=== PATIENT | male | born 1985 | race Caucasian/White ===

== ENCOUNTER 2020-02-10 01:52 | Emergency (ER) | payer OTHER ==
[~2020-02-10] VITALS: Ht 167.6 cm; Wt 109.5 kg
[2020-02-10 02:01] VITALS: Ht 167.6 cm; Wt 109.5 kg
[2020-02-10 03:14] LABS: BASOPHIL % 0.3 % (0-2); RED CELL DISTRIBUTION WIDTH 13.5 % (11.5-14.5)
[2020-02-10 03:20] LABS: CALCIUM 8.5 mg/dL (8.5-10.1); CARBON DIOXIDE 31.6 mmol/L (21-32); CHLORIDE SERUM 104 mmol/L (98-107); CREATININE SERUM 0.6 mg/dL (0.7-1.3); GFR1 > 60 mL/min; GLUCOSE SERUM 100 mg/dL (74-106); POTASSIUM SERUM 3.4 mmol/L (3.5-5.1); SODIUM SERUM 143 mmol/L (136-145)
[2020-02-10 03:27] LABS: ALKALINE PHOSPHATASE 141 U/L (46-116); ALT/SGPT 102 U/L (16-63); AST/SGOT 214 U/L (15-37); BILIRUBIN TOTAL 2.13 mg/dL (0.20-1.00); TOTAL PROTEIN, SERUM 8.2 g/dL (6.4-8.2)
[2020-02-10 03:32] LABS: ALBUMIN 3.2 g/dL (3.4-5.0)
[2020-02-10 03:42] LABS: PLATELET COUNT 101 x10^3mcL (130-400)
[2020-02-10 03:49] VITALS: BP 150/57
== END 2020-02-10 03:49 | disposition home or self-care (01) ==
LOC: ED 01:52
PROVIDERS: Emergency Medicine
DX: R06.02 Shortness of breath (principal)
CPT/HCPCS: 36415

== ENCOUNTER 2020-05-30 10:09 | Inpatient (IN) | payer OTHER ==
[~2020-05-30] VITALS: Ht 172.7 cm; Wt 103.4 kg
[2020-05-30 10:13] VITALS: Ht 172.7 cm; Wt 103.4 kg
[2020-05-30 11:43] LABS: BASOPHIL % 0.7 % (0-2)
[2020-05-30 11:44] LABS: RED CELL DISTRIBUTION WIDTH 16.4 % (11.5-14.5)
[2020-05-30 11:45] LABS: PLATELET COUNT 67 x10^3mcL (130-400)
[2020-05-30 12:09] LABS: CALCIUM 7.5 mg/dL (8.5-10.1); CARBON DIOXIDE 28.3 mmol/L (21-32); CHLORIDE SERUM 103 mmol/L (98-107); CREATININE SERUM 0.8 mg/dL (0.7-1.3); GFR1 > 60 mL/min; GLUCOSE SERUM 92 mg/dL (74-106); POTASSIUM SERUM 4.1 mmol/L (3.5-5.1); SODIUM SERUM 138 mmol/L (136-145)
[2020-05-30 12:14] LABS: ALKALINE PHOSPHATASE 96 U/L (46-116); ALT/SGPT 71 U/L (16-63); AST/SGOT 169 U/L (15-37); BILIRUBIN TOTAL 7.01 mg/dL (0.20-1.00); LIPASE 148 IU/L (73-393); TOTAL PROTEIN, SERUM 7.4 g/dL (6.4-8.2)
[2020-05-30 12:16] LABS: ALBUMIN 2.2 g/dL (3.4-5.0)
[2020-05-30 14:45] LABS: UA SPECIFIC GRAVITY >=1.030 (1.005-1.035); microscopic required? YES; urine erythrocyte NEGATIVE (NEGATIVE)
[2020-05-30 14:59] LABS: AMPHETAMINE QUAL UR NONE DETECTED (See below)
[2020-05-30 17:38] VITALS: BP 147/85
[2020-05-30 20:51] VITALS: BP 118/46
[2020-05-31 05:53] VITALS: BP 118/60
[2020-05-31 06:52] LABS: BASOPHIL % 0.5 % (0-2)
[2020-05-31 07:17] LABS: ALKALINE PHOSPHATASE 92 U/L (46-116); ALT/SGPT 59 U/L (16-63); AST/SGOT 145 U/L (15-37); BILIRUBIN TOTAL 7.19 mg/dL (0.20-1.00); CALCIUM 7.5 mg/dL (8.5-10.1); CARBON DIOXIDE 30.6 mmol/L (21-32); CHLORIDE SERUM 102 mmol/L (98-107); CREATININE SERUM 0.6 mg/dL (0.7-1.3); GFR1 > 60 mL/min; GLUCOSE SERUM 78 mg/dL (74-106); MAGNESIUM 1.8 mg/dL (1.8-2.4); PHOSPHOROUS 3.5 mg/dL (2.5-4.9); POTASSIUM SERUM 3.8 mmol/L (3.5-5.1); SODIUM SERUM 136 mmol/L (136-145)
[2020-05-31 07:20] LABS: ALBUMIN 2.1 g/dL (3.4-5.0)
[2020-05-31 07:28] LABS: PLATELET COUNT 61 x10^3mcL (130-400); RED CELL DISTRIBUTION WIDTH 16.6 % (11.5-14.5)
[2020-05-31 08:22] VITALS: BP 130/71
[2020-05-31 12:04] VITALS: BP 138/80
[2020-05-31 17:09] VITALS: BP 113/62
[2020-05-31 20:10] VITALS: BP 120/64
[2020-06-01 04:55] VITALS: BP 122/66
[2020-06-01 06:29] LABS: BASOPHIL % 0.7 % (0-2)
[2020-06-01 06:34] LABS: PLATELET COUNT 66 x10^3mcL (130-400); RED CELL DISTRIBUTION WIDTH 15.3 % (11.5-14.5)
[2020-06-01 07:05] LABS: CALCIUM 7.6 mg/dL (8.5-10.1); CARBON DIOXIDE 31.9 mmol/L (21-32); CHLORIDE SERUM 102 mmol/L (98-107); CREATININE SERUM 0.7 mg/dL (0.7-1.3); GFR1 > 60 mL/min; GLUCOSE SERUM 88 mg/dL (74-106); MAGNESIUM 1.8 mg/dL (1.8-2.4); PHOSPHOROUS 3.5 mg/dL (2.5-4.9); POTASSIUM SERUM 3.8 mmol/L (3.5-5.1); SODIUM SERUM 135 mmol/L (136-145)
[2020-06-01 08:14] VITALS: BP 119/69
[2020-06-01 12:07] VITALS: BP 115/62
[2020-06-01 16:07] VITALS: BP 137/74
[2020-06-01 21:08] VITALS: BP 110/56
[2020-06-02 06:05] VITALS: BP 111/61
[2020-06-02 06:44] LABS: BASOPHIL % 0.5 % (0-2)
[2020-06-02 07:09] LABS: CALCIUM 7.7 mg/dL (8.5-10.1); CHLORIDE SERUM 103 mmol/L (98-107); CREATININE SERUM 0.6 mg/dL (0.7-1.3); GFR1 > 60 mL/min; GLUCOSE SERUM 74 mg/dL (74-106); MAGNESIUM 1.8 mg/dL (1.8-2.4); SODIUM SERUM 138 mmol/L (136-145)
[2020-06-02 07:32] VITALS: BP 124/71
[2020-06-02 07:33] LABS: PLATELET COUNT 74 x10^3mcL (130-400); RED CELL DISTRIBUTION WIDTH 16.3 % (11.5-14.5)
[2020-06-02] MEDS ORDERED: LAC30L PO (09:23)
[2020-06-02] MEDS ORDERED: THERA-M CAPLET1 EACH PO (09:24)
[2020-06-02] MEDS ORDERED: THI100 PO (09:24)
[2020-06-02] MEDS ORDERED: FOL1 PO (09:24)
[2020-06-02 10:22] VITALS: BP 124/71
== END 2020-06-02 11:09 | disposition home or self-care (01) | DRG 280 ==
LOC: ED 10:09 → DU 13:11
PROVIDERS: Internal Medicine Gastroenterology; Student in an Organized Health Care Education/Training Program; ADMIT Family Medicine; ATTEND Family Medicine
PROC: 0DJ08ZZ Inspection of Upper Intestinal Tract, Via Natural or Artificial Opening Endoscopic (ICD-10-PCS; principal; 2020-06-01 12:30)
DX: K70.30 Alcoholic cirrhosis of liver without ascites (principal); K70.10 Alcoholic hepatitis without ascites; D69.6 Thrombocytopenia, unspecified; E46 Unspecified protein-calorie malnutrition; G62.9 Polyneuropathy, unspecified; E86.0 Dehydration; R74.0 Nonspecific elevation of levels of transaminase and lactic acid dehydrogenase [LDH]; K21.9 Gastro-esophageal reflux disease without esophagitis; K29.60 Other gastritis without bleeding; D50.9 Iron deficiency anemia, unspecified; G47.00 Insomnia, unspecified; Z87.891 Personal history of nicotine dependence; Z56.0 Unemployment, unspecified; Z83.3 Family history of diabetes mellitus; Z23 Encounter for immunization; Z79.899 Other long term (current) drug therapy; Z68.37 Body mass index [BMI] 37.0-37.9, adult
CPT/HCPCS: 43235; 90732; G0378; G0480; J1200; J1610; J2250; J2270; J2310; J2765; J3010; J3430; J3480; J3490; J7030; Q0092

== ENCOUNTER 2020-06-12 17:00 | Emergency (ER) | payer OTHER ==
[~2020-06-12] VITALS: Ht 165.1 cm; Wt 112.0 kg
[~2020-06-12 17:00] MED LIST: FOL1 PO; LAC30L PO; THERA-M CAPLET1 EACH PO; THI100 PO
[2020-06-12 17:01] VITALS: Ht 165.1 cm; Wt 112.0 kg
[2020-06-12 17:39] LABS: BASOPHIL % 0.4 % (0-2)
[2020-06-12 17:40] LABS: PLATELET COUNT 110 x10^3mcL (130-400); RED CELL DISTRIBUTION WIDTH 17.1 % (11.5-14.5)
[2020-06-12 17:47] LABS: CALCIUM 7.6 mg/dL (8.5-10.1); CHLORIDE SERUM 100 mmol/L (98-107); CREATININE SERUM 0.9 mg/dL (0.7-1.3); GFR1 > 60 mL/min; GLUCOSE SERUM 109 mg/dL (74-106); POTASSIUM SERUM 3.7 mmol/L (3.5-5.1); SODIUM SERUM 135 mmol/L (136-145)
[2020-06-12 17:51] LABS: ALKALINE PHOSPHATASE 120 U/L (46-116); ALT/SGPT 39 U/L (16-63); AST/SGOT 131 U/L (15-37); BILIRUBIN TOTAL 9.35 mg/dL (0.20-1.00); TOTAL PROTEIN, SERUM 8.1 g/dL (6.4-8.2); TRIGLYCERIDES 77 mg/dL (<150)
[2020-06-12 17:52] LABS: ALBUMIN 2.1 g/dL (3.4-5.0); CHOLESTEROL 60 mg/dL (<200); CHOLESTEROL/HDL RATIO 7.5; HDL CHOLESTEROL 8 mg/dL (40-60)
[2020-06-12 18:26] VITALS: BP 142/98
== END 2020-06-12 18:47 | disposition home or self-care (01) ==
LOC: ED 17:00
PROVIDERS: Specialist
DX: K74.60 Unspecified cirrhosis of liver (principal); R18.8 Other ascites; D69.6 Thrombocytopenia, unspecified
CPT/HCPCS: Q0092

== ENCOUNTER 2020-12-31 03:07 | Inpatient (IN) | payer OTHER ==
[~2020-12-31] VITALS: Ht 195.6 cm; Wt 89.9 kg
[2020-12-31 03:13] VITALS: Ht 195.6 cm; Wt 89.9 kg
--- NOTE | 2020-12-31 03:31 | NUR ---
ASSUMED CARE OF PT AT THIS TIME. PT PRESENTS TO ED WITH C/O OF MIDSTENRAL CHEST PAIN RADIATING TO ABD AND FLANKS X 1 DAY. +SOB -N/V/D. A/O X 4, GCS 15, RESP E/U, AIRWAY PATENT, SKIN INTACT AND PALE IN APPEARENCE, PT ABLE TO SPEAK IN FULL, COMPLETE SENTENCES, VSS, NAD. PT PLACED ON CARIAC MONITOR AND HOSPITAL GOWN. WILL CONTINUE TO MONITOR.
--- NOTE | 2020-12-31 03:53 | NUR ---
BLOOD SPECIMENS COLLECTED AND SENT TO LAB
--- NOTE | 2020-12-31 03:54 | NUR ---
RADIOLOGY AT BEDSIDE
[2020-12-31 04:02] LABS: BASOPHIL % 0.7 % (0.2-1.5)
[2020-12-31 04:07] LABS: PLATELET COUNT 72 x10^3mcL (152-348); RED CELL DISTRIBUTION WIDTH 15.5 % (12.1-16.2)
[2020-12-31 04:12] LABS: CALCIUM 8.7 mg/dL (8.5-10.1); CARBON DIOXIDE 25.4 mmol/L (21-32); CHLORIDE SERUM 100 mmol/L (98-107); CREATININE SERUM 0.8 mg/dL (0.7-1.3); GFR1 > 60 mL/min; GLUCOSE SERUM 84 mg/dL (74-106); POTASSIUM SERUM 4.2 mmol/L (3.5-5.1); SODIUM SERUM 133 mmol/L (136-145)
--- NOTE | 2020-12-31 04:15 | NUR ---
CONSENT FORM SIGNED FOR THORACENTESIS PROCEDURE PER DR. COOK.
[2020-12-31 04:17] LABS: ALBUMIN 2.6 g/dL (3.4-5.0); ALKALINE PHOSPHATASE 126 U/L (46-116); ALT/SGPT 32 U/L (16-63); AST/SGOT 60 U/L (15-37); BILIRUBIN TOTAL 5.7 mg/dL (0.20-1.00); TOTAL PROTEIN, SERUM 8.8 g/dL (6.4-8.2)
--- NOTE | 2020-12-31 04:46 | NUR ---
DR. COOK AT BEDSIDE PREPARING FOR THORACENTESIS. COVID SWAB CYNTHIA COLLECTED AND SENT TO LAB.
--- NOTE | 2020-12-31 05:29 | NUR ---
PROCEDURE COMPLETED. PT TOLERATED WELL. PLEUAL FLUID SAMPLE COLLECTED AND SENT TO LAB. PT RESTING COMFORTABLY IN [place]AN[place]A KLE[place], [place].
--- NOTE | 2020-12-31 05:33 | NUR ---
2L OF FLUID OUTPUT. RADIOLOGY AT BEDSIDE
--- NOTE | 2020-12-31 07:12 | NUR ---
REPORT GIVEN TO KAITLIN JOHNSON. ALL CARE ENDORSED AT THIS TIME.
--- NOTE | 2020-12-31 07:16 | NUR ---
RECEIVED REPORT FROM KAITLIN HAIR TO ASSUME CARE OF PATIENT.
--- NOTE | 2020-12-31 08:08 | NUR ---
PT RESTING IN POC IN LOW FOWLERS ON 6L 02 NC, WITH SAT AT 99%. PT DENIES PAIN AT THIS TIME. PT IS A&OX4 WITH E/U BREATHS, NO ACD NOTED. PROVIDED PT WITH WARM BLANKET REQUESTED.
--- NOTE | 2020-12-31 09:20 | NUR ---
CALLED TO GIVE REPORT TO SHAKIR MADRIGAL BUT STATED WAS PASSING MEDS TO CALL BACK IN 5MINS.
--- NOTE | 2020-12-31 09:31 | NUR ---
CALLED TO GIVE REPORT TO SHAKIR MADRIGAL IN TELE 241B TO ASSUME CARE OF PT. ALL QUESTIONS ANSWERED AT THIS TIME.
--- NOTE | 2020-12-31 09:36 | NUR ---
REPORT RECIVED FROM E.R NURSE PATIENT WILL BE ADMITTED FOR PRIMARY SOB, THROMBOCYTOPENIA AND PLEURAL EFFUSION. PATIENT HAD CT DONE FLUID IN THE LUNGS NOTED- 2L REMOVED. PER REPORT 0900 MEDS WERE NOT ABLE TO BE GIVEN WILL ASSESS PATIENT AND GIVE WHEN HE ARRIVES TO THE UNIT
--- NOTE | 2020-12-31 09:53 | NUR ---
PT TRANSFERRED VIA GURNEY WITHOUT INCIDENCE TO [address] [place] [address] BY TYREE HOWARD AND MYSELF.
[2020-12-31 09:56] LABS: APPEARANCE FLUID HAZY; COLOR FLUID YELLOW; RBC FLUID 6740 /cumm; SITE FLUID RIGHT; SOURCE FLUID PLEURAL; WBC FLUID 240 /cumm
[2020-12-31 09:57] LABS: LYMPHOCYTE FLUID 85 %; MONOCYTE FLUID 12 %
[2020-12-31 11:16] VITALS: BP 114/52
--- NOTE | 2020-12-31 11:41 | NUR ---
PATIENT ON THE FLOOR AT THIS TIME, NO COMPLAINTS OF PAIN FROM FLUID REMOVAL. MD CORTES RECCOMENDING ALBUMIN INFUSION, WILL ADMINISTER. ASSESSMENT DONE, PER PATIENT HE IS NOT HUNGRY- POOR APPETITE ALL WEEK.
--- NOTE | 2020-12-31 12:01 | NUR ---
UPDATED SERENITY MOTHER- ON PLAN OF CARE
[2020-12-31 12:37] VITALS: BP 103/52
--- NOTE | 2020-12-31 16:11 | NUR ---
REPEAT STAT THORACENTISIS ORDERED- PATIENT HAD ONE THIS AM 2L OUT, RADIOLOGY IS CONCERNED TO TAP THE PATIENT TWICE IN ONE DAY, SHE IS CALLING RADIOLOGIST AND WILL CALL ME BACK WITH A ANSWER SO I CAN RELAY TO DR TORRE
[2020-12-31 17:46] VITALS: BP 103/51
--- NOTE | 2020-12-31 19:50 | NUR ---
PT RECEIVED FROM DAY SHIFT. A&O X4.TELE 10, NSR. STRONG PUSES ALL EXTREMITIES, NO EDEMA.DIMINISHED BREATH SOUNDS THROUGHOUT, ON 2.5L NC OXYGEN SATURATION >95%. ACTIVE BOWEL SOUNDS X4, PT VOIDS WITH URINAL.AMBULATES. SKIN INTACT. NO C/O OR SIGNS OFPAIN, DISTRESS, OR DISOCMFORT. LAC 20G. BED RAILS UP X2, CALL LIGHT WITHIN REACH, BED RAILS UP X2. WILL CONTINUE TO MONITOR.
[2020-12-31 21:25] VITALS: BP 105/54
[2021-01-01] VITALS (7 sets, daily range): BP systolic 79–111; BP diastolic 38–59
--- NOTE | 2021-01-01 01:21 | NUR ---
PT RESTING IN BED WITH EYES CLOSED. NO C/O OR SIGNS OF PAIN, DISTRESS, DISOCMFORT, OR SOB. BED ON LOWEST LEVEL, CALL LIGHT WITHIN REACH, BED RAILS UP X2. WILL CONTINUE TO MONITOR.
--- NOTE | 2021-01-01 06:28 | NUR ---
PT RESTING IN BED. PT RECEIVED 2 ALBUMIN TRANSFUSION WHICH PT TOLERATED WELL NO C/O OR SIGNS OF ADVERSE EFFECTS. ON 2.5L NC OXYGEN SATURATION >95%. PT C/O OF SLIGHT GENERALIZED PAIN. BED ON LOWEST LEVEL, CALL LIGHT WITHIN REACH, BED RAILS UP X2. WILL ENDORSE TO ONCOMING SHIFT.
[2021-01-01 06:52] LABS: RED CELL DISTRIBUTION WIDTH 15.3 % (12.1-16.2)
[2021-01-01 06:56] LABS: PLATELET COUNT 53 x10^3mcL (152-348)
[2021-01-01 07:12] LABS: CALCIUM 7.9 mg/dL (8.5-10.1); CARBON DIOXIDE 25.7 mmol/L (21-32); CHLORIDE SERUM 101 mmol/L (98-107); CREATININE SERUM 0.7 mg/dL (0.7-1.3); GFR1 > 60 mL/min; GLUCOSE SERUM 75 mg/dL (74-106); MAGNESIUM 1.6 mg/dL (1.8-2.4); POTASSIUM SERUM 3.8 mmol/L (3.5-5.1); SODIUM SERUM 138 mmol/L (136-145)
[2021-01-01 07:15] LABS: CHOLESTEROL 90 mg/dL (<200); HDL CHOLESTEROL 18 mg/dL (40-60); TRIGLYCERIDES 26 mg/dL (<150)
[2021-01-01 08:13] LABS: rbc morphology (normal/abnorm) ABNORMAL (NORMAL)
--- NOTE | 2021-01-01 08:13 | NUR ---
PATIENT IS A 35 YEAR OLD MALE THAT CAME INTO [facility] FOR [facility]B [facility] FOR 24 HOURS IMPENDING WORKING, HE WAS ADMITTED FOR PLERAL EFFUSION, TRANSMINITIS, LEUKOPENIA, HYPOALBUMIENIA. ALBUMIN 3 DOSES WERE GIVEN. THORACENTISIS SAMUEL FOR THIS AM AGAIN. PENDING ARRIVAL. PATIENT IS ALERT AND ORIENTED ABLE TO VERALIZE NEEDS X4, NO PAIN NOTED. ON 2.5L NC SATING 95%
[2021-01-01 08:14] LABS: PLATELET MORPHOLOGY PLATELETS DECREASED
--- NOTE | 2021-01-01 08:35 | NUR ---
INR 2.[address] BAKER STATED NEED STAT PT/INR/PTT. INFORMED PRIMARY NURSE SHAKIR.
--- NOTE | 2021-01-01 10:05 | NUR ---
ALEX FROM LAB CALLED PT/PTT/INR IS BEING DRAWN NOW BUT WONT RESULT TILL PROBABLY 11AM, MD WILL GO TO [facility] FOR SOME PROCEDURES THEN RETURN. EXPECTED TIME FOR THORACENTISIS IS AROUND 12-1300. PENDING CALL FROM RADIOLOGY THIS AFTERNOON. PATIENT UPDATED ON PLAN OF CARE.
[2021-01-01] MEDS ORDERED: ALD25 PO (11:49)
[2021-01-01] MEDS ORDERED: IND10 PO (11:50)
[2021-01-01] MEDS ORDERED: LASIX40 MG PO (11:50)
--- NOTE | 2021-01-01 12:38 | NUR ---
ORDERED FFP FOR THE PATIENT. CONSENTED AND SIGNED BY MD PENDING LAB TO CALL WHEN ITS READY. RADIOLOGY AT BEDSIDE TO DO THORACENTISIS. VIT K TO BE GIVEN IV BEFORE BUT NOT PERPARED BY PHARMACY IN TIME WILL GET IT AND HANG KRISTINA. INR 2.1
--- NOTE | 2021-01-01 12:59 | NUR ---
THORACENTISIS DONE 1L REMOVED. BP 70/40 DR LUZ CALLED FROM [place], HE CAN DC AFTER ALBUMIN 500NS BOLUS, FFP AND VIT K
--- NOTE | 2021-01-01 14:46 | NUR ---
PATIENT BP IN THE 80'S AT THIS TIME, PATIENT RECIEVED ALBUMIN VITAMIN K AND 500NS. DONT FEEL COMFORTABLE TO DC AT THIS TIME DUE TO BP NOT ABOVE 90'S. ALSO FFP NEEDS TO BE GIVEN. CONFIRMED WITH CHARGE NURSE IF BP STAYS LOW WILL DC IN AM.
--- NOTE | 2021-01-01 16:06 | NUR ---
FFP TRANSFUSING AT THIS TIME ALMOST COMPLETE. VS AT THIS TIME BP 90'S- 100. PATIENT FEELS TIRED.
--- NOTE | 2021-01-01 16:35 | NUR ---
DR PEDROZA AWARE OF BP LEVELS IMPROVED BUT PATIENT WOULD BENEFIT FROM OVERNIGHT STAY FOR MONITORING AND CAN LEAVE IN AM. PATIENT IS AWARE, MOM SERENITY IS AWARE. SHE IS PICKING UP HIS CAR NOW AND WILL DROP OFF TACOS FOR HIM. DIET ADVANCED TO REGULAR- MD OK WITH FOOD FROM HOME. FFP COMPLETE.
--- NOTE | 2021-01-01 19:50 | NUR ---
RECEIVED PT FROM DAY SHIFT NURSE, PT IS SITTING IN BED AWAKE AND ALERT A&OX4. TELE 10, NSR. DENIES CP, DIZZINESS, TRINIDAD, N/V AND PALPITATIONS. PALPABLE PULSES, NO EDEMA NOTED. BREATHING IS EVEN AND UL ON RA, LUNG SOUNDS DIMINISHED BILATERL BASES. NO SOB OR ACUTE RESPIRATORY DISTRESS NOTED. BOWEL SOUNDS ACTIVE X4, ABD IS SOFT AND ROUND. AMBULATORY AT BASELINE. IV TO LAC CDI AND PATENT, FLUSHING WELL. NO C/O PAIN OR DISCOMFORT AT THIS TIME. BED IN LOWEST POSITION. CALL LIGHT IS W/IN REACH. WILL CONTINUE TO MONITOR.
--- NOTE | 2021-01-01 20:45 | NUR ---
CXR RESULTS S/P THORACENTESIS REPORTED TO DR. DENNISON. INFORMED THAT RESULTS SHOW R HEMITHORAX. PER DR. DENNISON, NNO AT THIS TIME. PT IS STABLE, VS WNL. NO C/O SOB OR ACUTE RESPIRATORY DISTRESS. WILL CONTINUE TO MONITOR.
--- NOTE | 2021-01-01 23:16 | NUR ---
PT C/O SEVERE PAIN TO RLQ. DR. DENNISON NOTIFIED, ORDERED MORPHINE 4MG IV PRN Q4H.
[2021-01-02 05:35] VITALS: BP 95/45
--- NOTE | 2021-01-02 06:25 | NUR ---
PT IS RESTING IN BED ASLEEP. NO S/SX OF PAIN OR DISCOMFORT AT THIS TIME. BREATHING REMAINS EVEN AND UL ON 3L NC, NO SOB NOTED. NO SIGNIFICANT CHANGES AT THIS TIME. REMAINS IN STABLE CONDITION. ALL NEEDS MET. BED IN LOWEST POSITION. CALL LIGHT IS W/IN REACH. WILL ENDORSE CARE TO DAY SHIFT NURSE.
[2021-01-02 07:30] LABS: CALCIUM 8.1 mg/dL (8.5-10.1); CARBON DIOXIDE 27.2 mmol/L (21-32); CHLORIDE SERUM 101 mmol/L (98-107); CREATININE SERUM 0.6 mg/dL (0.7-1.3); GFR1 > 60 mL/min; GLUCOSE SERUM 85 mg/dL (74-106); MAGNESIUM 1.6 mg/dL (1.8-2.4); POTASSIUM SERUM 3.6 mmol/L (3.5-5.1); SODIUM SERUM 135 mmol/L (136-145)
[2021-01-02 07:39] LABS: RED CELL DISTRIBUTION WIDTH 15.3 % (12.1-16.2)
--- NOTE | 2021-01-02 07:47 | NUR ---
RECEIVED REPORT FROM PREMIUM CANCELLATION CLERK RN. PT LAYING IN BED AND WATCHING TV. NO ACUTE DISTRESS NOTED AT THIS TIME. AAOX4, ON TELE 10, NO CP AND PRESSURE NOTED. PULSES +, - EDEMA. ON 3L NC, NO SOB OR COUGHING AT THIS TIME. PT WANTED TO KEEP IT AT 3L. NO N/V/D NOTED. THORACENTESIS SITE NOTED. DENIES PAIN AT THIS TIME. WILL CONT TO MONITOR. IV TO LAC PATENT AND FLUSHING. CALL LIGHT WITHIN REACH. BED IN LOWEST POSITION.
--- NOTE | 2021-01-02 07:55 | NUR ---
PAGED DR. NUNEZ REGARDING PTS CRITICAL LAB OF PLT 46 WBC 2.3. WILL AWAIT FOR CALL BACK.
--- NOTE | 2021-01-02 08:27 | NUR ---
SPOKE WITH DR. NUNEZ AND REPORTED PLT 46, WBC 2.3, AND BP 107/50. STATED PT IS OKAY TO BE DISCHARGED. NO ADDITIONAL ORDERS AT THIS TIME.
[2021-01-02 08:36] VITALS: BP 107/50
[2021-01-02 08:55] LABS: MONOCYTE 9 % (0-7); SEGMENTED NEUTROPHILS 53 % (37-75)
[2021-01-02 08:56] LABS: PLATELET MORPHOLOGY PLATELETS DECREASED; rbc morphology (normal/abnorm) ABNORMAL (NORMAL)
--- NOTE | 2021-01-02 09:01 | NUR ---
TITRATED PTS O2 TO 2L NC, EDUCATED ON HOW TO USE CALL LIGHT IF SOB PERSISTS. VERBALIZED UNDERSTANDING. CALL LIGHT WITHIN REACH.
--- NOTE | 2021-01-02 09:18 | NUR ---
SPOKE CH[place] JOHNSON ON THE TELEPHONE REGARDING PT UPDATES AND THAT DR. NUNEZ OKAYED FOR PT TO BE DISCHARGED. ALEX ACKNOWLEDGED.
[2021-01-02 10:34] LABS: PLATELET COUNT 46 x10^3mcL (152-348)
[2021-01-02 10:35] VITALS: BP 107/50
--- NOTE | 2021-01-02 12:01 | NUR ---
PAGED DR. NUNEZ REGARDING PT'S REQUEST FOR WORK NOTE PRIOR TO DISCHARGE. WILL AWAIT FOR CALL BACK.
[2021-01-02 12:11] VITALS: BP 107/49
--- NOTE | 2021-01-02 12:21 | NUR ---
PAGED DR. NUNEZ TO FOLLOW UP ABOUT PTS WORK NOTE BEFORE DISCHARGE. WILL AWAIT FOR CALL BACK.
--- NOTE | 2021-01-02 12:36 | NUR ---
SPOKE WITH DR. NUNEZ ON THE TELEPHONE REGARDING PTS WORK NOTE. STATED TO GIVE PT 3 DAYS OFF FROM WORK.
--- NOTE | 2021-01-02 12:53 | NUR ---
PT DISCHARGED. AAOX4, NO ACUTE DISTRESS NOTED. IV DC-ED, CATHETER INTACT, NO EXCESSIVE BLEEDING NOTED ON SITE. GAVE DISCHARGE PAPERWORK AND DISCHARGE INSTRUCTIONS. NO ADDITIONAL QUESTIONS AT THIS TIME. WHEELCHAIRED BY LINE LEAD TO THE LOBBY. PT HAS ALL BELONGINGS WITH HIM.
== END 2021-01-02 12:48 | disposition home or self-care (01) | DRG 280 ==
LOC: ED 03:07 → DU 06:17
PROVIDERS: Emergency Medicine; ADMIT Hospitalist; ATTEND Hospitalist
PROC: 0W993ZZ Drainage of Right Pleural Cavity, Percutaneous Approach (ICD-10-PCS; principal; 2021-01-01)
PROC: 30233L1 Transfusion of Nonautologous Fresh Plasma into Peripheral Vein, Percutaneous Approach (ICD-10-PCS; 2021-01-01)
DX: K70.30 Alcoholic cirrhosis of liver without ascites (principal); J90 Pleural effusion, not elsewhere classified; D68.9 Coagulation defect, unspecified; D69.6 Thrombocytopenia, unspecified; D64.9 Anemia, unspecified; E88.09 Other disorders of plasma-protein metabolism, not elsewhere classified; D72.819 Decreased white blood cell count, unspecified; Z83.3 Family history of diabetes mellitus; Z79.899 Other long term (current) drug therapy; Z79.891 Long term (current) use of opiate analgesic; Z79.01 Long term (current) use of anticoagulants; Z20.822 Contact with and (suspected) exposure to COVID-19
CPT/HCPCS: 32555; 83880; C1729; G0378; J1940; J2001; J2270; J3430; J7040; P9047; P9059